=== PATIENT | female | born 1955 | race Caucasian/White ===

== ENCOUNTER 2019-05-24 19:42 | Emergency (ER) | payer OTHER, SELFPAY ==
--- NOTE | ~2019-05-24 | XR_ITS ---
XR foot LT min 3V 05/24/2019 20:04 Indication: Left foot pain Procedure: 4 views left foot Comparison: No prior studies for comparison. Findings: No fracture, subluxation or dislocation. Mild osteoarthritis of the first MTP joint. Small degenerative calcaneal enthesophyte at the plantar surface. Mild dorsal soft tissue swelling. No fore ign bodies. Lisfranc joint is intact. Impression: 1: No acute fracture. Reviewed, dictated and finalized at location A. ODONTIC LABORATORY TECHNICIAN Impression: 1: No acute fracture.
[2019-05-24 19:43] VITALS: BP 159/79; PULSE 116; RESP 16; TEMP 36.8; O2SAT 100
--- NOTE | 2019-05-24 20:37 | ED.GENADULT ---
HPI - General Adult General Chief complaint: Extremity Injury, Lower <Shital Vernon PA-C - Last Filed: 05/24/19 20:54> Stated complaint: L foot pain <LUCIA Clayton Last Filed: 05/24/19 20:54> Time Seen by Provider: 05/24/19 20:36 <Shital Vernon PA-C - Last Filed: 05/24/19 20:54> Source: patient and family <Shital Vernon PA-C - Last Filed: 05/24/19 20:54> Mode of arrival: wheelchair <LUCIA Clayton Last Filed: 05/24/19 20:54> Limitations: no limitations <LUCIA Clayton Last Filed: 05/24/19 20:54> History of Present Illness HPI narrative: Patient is here with her family for evaluation of her left foot after she tripped over a baby gate at home and fell. She is having significant pain in her the top of her left foot. She is taken nothing for the pain prior to arrival. <Shital Vernon PA-C - Last Filed: 05/24/19 20:54> Onset (ago): hour(s) <Shital Vernon PA-C - Last Filed: 05/24/19 20:54> Location: left and lower extremity <Shital Vernon PA-C - Last Filed: 05/24/19 20:54> Radiation: non-radiation <LUCIA Clayton Last Filed: 05/24/19 20:54> Severity: severe <LUCIA Clayton Last Filed: 05/24/19 20:54> Quality: sharp <LUCIA Clayton Last Filed: 05/24/19 20:54> Relieving factors: rest <LUCIA Clayton Last Filed: 05/24/19 20:54> Exacerbating factors: movement <LUCIA Clayton Last Filed: 05/24/19 20:54> Associated symptoms: denies other symptoms <Shital Vernon PA-C - Last Filed: 05/24/19 20:54> Treatments prior to arrival: none <Shital Vernon PA-C - Last Filed: 05/24/19 20:54> Related Data Allergies/adverse reactions: Allergies Allergy/AdvReac Type Severity Reaction Status Date / Time Penicillins Allergy Intermediate Unknown Verified 05/24/19 21:02 <Shital Vernon PA-C - Last Filed: 05/24/19 20:54> Review of Systems Review of Systems: All systems reviewed & are unremarkable except as noted in HPI and below <Shital Vernon PA-C - Last Filed: 05/24/19 20:54> [facility] Social History Social History: Social History (Updated 05/24/19 @ 20:47 by Shital Vernon PA-C) Smoking status: Never smoker Alcohol intake: never Substance use: never Living arrangements: with family 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 Gender identity (if verbalized by the patient): Female <Shital Vernon PA-C - Last Filed: 05/24/19 20:54> Exam Const: General: no acute distress and alert <Shital Vernon PA-C - Last Filed: 05/24/19 20:54> Orientation/consciousness: patient oriented x3 <Shital Vernon PA-C - Last Filed: 05/24/19 20:54> HENMT: Head: normal to inspection <Shital Vernon PA-C - Last Filed: 05/24/19 20:54> Eyes: Pupils: Equal, round and reactive pupils present <Shital Vernon PA-C - Last Filed: 05/24/19 20:54> Resp: Effort & Inspection: normal respiratory effort <Shital Vernon PA-C - Last Filed: 05/24/19 20:54> Cardio: Rate: regular rate <Shital Vernon PA-C - Last Filed: 05/24/19 20:54> Rhythm: regular rhythm <Shital Vernon PA-C - Last Filed: 05/24/19 20:54> Peripheral pulses: dorsalis pedis present on the left <Shital Vernon PA-C - Last Filed: 05/24/19 20:54> Skin: Wounds: wounds noted (hematoma to top of left foot. ) <Shital Vernon PA-C - Last Filed: 05/24/19 20:54> Extrem: Left lower extremity: foot Details: normal capillary refill, tenderness (sig pain to top of left foot and in arch), toes with normal ROM and edema Location: of the dorsal foot (left) <Shital Vernon PA-C - Last Filed: 05/24/19 20:54> Psych: Mental Status: mental status grossly normal <Shital Vernon PA-C - Last Filed: 05/24/19 20:54> Course Course Emergency Course: Radiology results are negative at this time, patient's foot is quite swollen an
[2019-05-24] MEDS: IBUPROFEN 400 MG TABLET 800 MG PO (21:10)
== END 2019-05-24 21:59 | disposition home or self-care (01) ==
PROVIDERS: Emergency Provider General Practice
DX: S93.602A Unspecified sprain of left foot, initial encounter (principal); S90.32XA Contusion of left foot, initial encounter; W18.09XA Striking against other object with subsequent fall, initial encounter
CPT/HCPCS: 73630; 99283; A9270

== ENCOUNTER 2019-06-10 17:56 | Emergency (ER) | payer OTHER, SELFPAY ==
[2019-06-10 18:12] VITALS: PULSE 96; RESP 19; TEMP 37.6; O2SAT 100
--- NOTE | 2019-06-10 18:16 | ED.URI ---
HPI - URI/Sore Throat General Chief Complaint: Upper Respiratory Infection Stated Complaint: cough/achey History of Present Illness HPI Narrative: This is a 63-year-old female comes in complaining of severe nausea and body aches. Patient states is been going on since Friday she just feels horrible Related Data Allergies Allergy/AdvReac Type Severity Reaction Status Date / Time Penicillins Allergy Intermediate Unknown Verified 06/10/19 18:19 Review of Systems Constitutional: Comments: CONSTITUTIONAL: Denies fever, chills, or sweats. EYES: Denies visual changes, redness, or discharge. ENT: Reports rhinorrhea, congestion, sore throat, or otalgia. CARDIOVASCULAR:Denies chest pain, palpitations, or edema. RESPIRATORY: Reports cough or dyspnea. GASTROINTESTINAL: Denies abdominal pain, nausea, vomiting, or diarrhea. GENITOURINARY: Denies dysuria or hematuria. SKIN:[Denies rash or itching. MUSCULOSKELETAL:Denies back pain, joint pain, or myalgia. NEUROLOGIC: Denies headache, numbness, or weakness. PSYCHIATRIC:Denies anxiety or depression PMFSH Past Medical History Medical History (Updated 06/11/19 @ 00:01 by Gregory Clarke) Hyperlipidemia Hypoglycemia Surgical History Surgical History (Updated 06/10/19 @ 21:22 by Nela Baltazar) Hx of appendectomy Hx of tonsillectomy Social History Social History (Updated 05/24/19 @ 20:47 by Shital Vernon PA-C) Smoking status: Never smoker Alcohol intake: never Substance use: never Additional occupation/education comments: office Gender identity (if verbalized by the patient): Female Comments At time as signature, I have reviewed and agree with nursing past medical, social, surgical and family history. Please see nursing chart for further information. There is no relevant family history pertinent to the presenting complaint. Exam Narrative: Exam Narrative: GENERAL:Well-appearing, well-nourished, and in no acute distress. Pale HEAD:Normocephalic, atraumatic. EYES: PERRLA and EOMI. ENT: Nares clear, no rhinorrhea or epistaxis. Mucous membranes moist. NECK: Supple. CHEST: Clear to auscultation. No respiratory distress. Hypotensive skin:Pale HEART: Regular rate and rhythm. No murmur heard. Normal peripheral pulses. ABDOMEN: Soft, nontender, nondistended, normal active bowel sounds. EXTREMITIES: Normal range of motion. No edema. SKIN: Warm, dry, no rash. NEURO: No focal deficits. Alert and oriented x3. Patient is not feeling well it hurts her to hold her head up. Course Vital Signs Vital signs: Vital Signs Temperature 99.6 F 06/10/19 18:12 Pulse Rate 96 06/10/19 18:12 Respiratory Rate 19 06/10/19 18:12 Pulse Oximetry 100 06/10/19 18:12 Temperature 97.9 F 06/10/19 18:22 Pulse Rate 72 06/10/19 18:22 Respiratory Rate 20 06/10/19 18:22 Blood Pressure 80/40 L 06/10/19 18:22 Pulse Oximetry 100 06/10/19 18:12 Discharge Plan Discharge Clinical Impression: Acute hypotension Patient Disposition: [facility] Care [facility] Condition: Stable Prescriptions: No Action benzonatate [Tessalon Perles] 100 mg capsule 200 mg PO TID PRN (Reason: cough) Qty: 30 RF: 0 Interventions: Discharge Disposition Last Done: 06/10/19 18:32 Follow-up/Referrals: UNKNOWN,DOCTOR [Primary Care Provider] - Discharge Date/Time: 06/10/19 18:32
[2019-06-10 18:22] VITALS: BP 80/40; PULSE 72; RESP 20; TEMP 36.6
== END 2019-06-10 18:32 | disposition short-term general hospital (02) ==
LOC: EXPTROY 17:59
PROVIDERS: Emergency Provider Nurse Practitioner Family
DX: I95.9 Hypotension, unspecified (principal); E78.5 Hyperlipidemia, unspecified
CPT/HCPCS: 87804; 99215; G0463

== ENCOUNTER 2019-06-10 18:49 | Emergency (ER) | payer OTHER, SELFPAY ==
--- NOTE | ~2019-06-10 | XR_ITS ---
EXAMINATION: XR chest 2V EXAM DATE: 06/10/2019 21:06 INDICATION: Cough, hypertension, nausea. TECHNIQUE: Frontal and lateral projections of the chest obtained and reviewed. There is no prior iliana dy for comparison. FINDINGS: Mild hyperinflation. The lungs are clear. There are no pleural effusions. The cardiomedi astinal silhouette is within normal limits. There is no pneumothorax suspected. The bones and soft tissues are unremarkable. IMPRESSION: No acute cardiopulmonary findings. Reviewed, dictated and finalized at location A. ULAR SAW OPERATOR
[2019-06-10 18:52] VITALS: BP 119/78; PULSE 90; RESP 19; TEMP 36.4; O2SAT 99
[2019-06-10 19:05] LABS: Basophils Percent Auto 0.3 % (0.2-1.2); Eosinophils Percent Auto 0.3 % (0-4.4); Hematocrit 34.9 % (37.0-47.0); Hemoglobin 11.6 g/dL (12.0-15.0); Immature Granulocyte Absolute 0.02 K/mm3 (0.00-0.031); Immature Granulocyte Percent A 0.3 % (0-0.5); Lymphocytes Absolute Auto 0.42 K/mm3 (0.9-3.2); Mean Corpuscular HGB Conc 33.2 g/dl (32-36); Mean Corpuscular Hemoglobin 28.4 pg (26-34); Mean Corpuscular Volume 85.5 fl (80-100); Mean Platelet Volume 9.7 fl (7.4-10.4); Monocytes Absolute Auto 0.6 K/mm3 (0.1-0.6); Monocytes Percent Auto 8.4 % (2.6-8.5); Neutrophils Percent Auto 84.7 % (45.5-73.1); Platelet Count Result 231 k/mm3 (150-375); Red Blood Count 4.08 M/mm3 (4.2-5.4); Red Cell Distribution Width 12.7 % (11.5-14.5)
[2019-06-10 19:17] LABS: Alanine Aminotransferase 17 U/L (4-35); Alkaline Phosphatase 121 U/L (38-126); Aspartate Amino Transferase 24 U/L (14-36); Bilirubin,Total 0.5 mg/dL (0.2-1.3); Blood Urea Nitrogen 11 mg/dL (7-17); Calcium 8.9 mg/dL (8.4-10.2); Carbon Dioxide 25 mmol/L (22-30); Chloride 101 mmol/L (98-107); Estimated Glomerular Filt Rate > 60; Glucose 99 mg/dL (65-105); Potassium 3.4 mmol/L (3.4-5.0); Sodium 137 mmol/L (137-145)
[2019-06-10 20:44] VITALS: BP 131/69; PULSE 97; RESP 18; O2SAT 100
--- NOTE | 2019-06-10 20:56 | ED.RECABL ---
HPI - Recheck/Abnormal Lab/Rx General Chief Complaint: Recheck/Abnormal Lab/Rx Stated Complaint: Nausea/cough Time Seen by Provider: 06/10/19 20:43 Source: patient and RN notes reviewed Mode of arrival: EMS Limitations: no limitations History of Present Illness HPI narrative: Pt is a 63 y/o female who presents to the ED, via EMS from , with c/o hypotension. Pt notes that she went to for her cough that began 2 days ago (06/08/19). reported the pt to have a blood pressure of 80/40. EMS started the pt on IV fluids. Pt notes that she has been taking Delsym and Tylenol for her cough. She notes that her last dose of Tylenol was this morning. Pt had a negative flu swab test while at the . Pt reports nausea, fever, mild SOB, and resolved dizziness, but denies vomiting, body aches, and wheezing. complaint: abnormal lab Initial visit (ago): hour(s) Initial visit for: other (cough) Context: other (hypotension) Associated symptoms: fever, shortness of breath (mild), nausea and other (resolved dizziness) Related Data Allergies Allergy/AdvReac Type Severity Reaction Status Date / Time Penicillins Allergy Intermediate Unknown Verified 06/10/19 18:19 Review of Systems Review of Systems: All systems reviewed & are unremarkable except as noted in HPI and below Constitutional: Constitutional: Reports fever(s) Respiratory: Respiratory: Reports cough, Reports dyspnea (mild) and Denies wheezing Gastrointestinal: Gastrointestinal: Reports nausea and Denies vomiting Musculoskeletal: Musculoskeletal: Denies myalgias Neurologic: Reports dizziness (resolved) [facility] Past Medical History Medical History (Updated 06/10/19 @ 22:13 by Anson Bernal MD) Hyperlipidemia Hypoglycemia Surgical History Surgical History (Updated 06/10/19 @ 21:22 by Nela Baltazar) Hx of appendectomy Hx of tonsillectomy Social History Social History (Updated 05/24/19 @ 20:47 by Shital Vernon PA-C) Smoking status: Never smoker Alcohol intake: never Substance use: never Additional occupation/education comments: office Gender identity (if verbalized by the patient): Female Exam Const: General: no acute distress, alert and ill appearing Orientation/consciousness: patient oriented x3 HENMT: General nose exam: Nasal discharge present Mouth: Yes Normal oral and palatal mucosa present and Yes moist mucous membranes Eyes: Pupils: Equal, round and reactive pupils present Neck: Neck: normal visual inspection Resp: Effort & Inspection: normal respiratory effort Auscultation: clear to auscultation bilaterally Cardio: Rate: regular rate Rhythm: regular rhythm GI: Other: NTND Skin: General skin exam: normal color Neuro: General: patient oriented x3, moves all extremities and no focal motor deficits Speech: normal speech Extrem: General: no edema Course Vital Signs Vital signs: Vital Signs Temperature 36.4 C 06/10/19 18:52 Pulse Rate 90 06/10/19 18:52 Respiratory Rate 19 06/10/19 18:52 Blood Pressure 119/78 06/10/19 18:52 Pulse Oximetry 99 06/10/19 18:52 Temperature 36.9 C 06/10/19 22:38 Pulse Rate 90 06/10/19 22:38 Respiratory Rate 16 06/10/19 22:38 Blood Pressure 128/78 06/10/19 22:38 Pulse Oximetry 99 06/10/19 22:38 MDM - Recheck/Abnormal Lab/Rx Medical Records Attestation: I reviewed the patient's medical records. Lab Data Attestation: I reviewed the patient's lab results. Result diagrams: 06/10/19 18:58 06/10/19 18:58 Labs: Lab Results 06/10/19 06/10/19 Range/Units 18:58 18:58 WBC 7.0 (4.5-10.0) K/mm3 RBC 4.08 L (4.2-5.4) M/mm3 Hgb 11.6 L (12.0-15.0) g/dL Hct 34.9 L (37.0-47.0) % MCV 85.5 (80-100) fl MCH 28.4 (26-34) pg MCHC 33.2 (32-36) g/dl RDW 12.7 (11.5-14.5) % Plt Count 231 (150-375) k/mm3 MPV 9.7 (7.4-10.4) fl Immature Gran % (Auto) 0.3 (0-0.5) % Neut % (Auto) 84.7 H (45.5
[2019-06-10] MEDS: KETOROLAC 30 MG/ML VIAL (*BKC) IV PUSH (21:49)
[2019-06-10] MEDS: BENZONATATE 100 MG CAPSULE 200 MG PO (21:49)
[2019-06-10 21:52] VITALS: BP 130/83; PULSE 88; RESP 18; TEMP 36.9; O2SAT 100
[2019-06-10 22:38] VITALS: BP 128/78; PULSE 90; RESP 16; TEMP 36.9; O2SAT 99
== END 2019-06-10 22:40 | disposition home or self-care (01) ==
PROVIDERS: Emergency Provider Emergency Medicine
DX: J06.9 Acute upper respiratory infection, unspecified (principal); E78.5 Hyperlipidemia, unspecified
CPT/HCPCS: 36415; 71046; 80053; 85025; 96374; 99284; A9270; J1885